=== PATIENT | female | born 1960 | race Caucasian/White ===

== ENCOUNTER 2017-01-07 15:19 | Outpatient (CLI) | payer OTHER | END 2017-01-07 15:20 | disposition home or self-care (01) | DX: G47.30 Sleep apnea, unspecified (principal); G47.8 Other sleep disorders; G47.10 Hypersomnia, unspecified; R06.83 Snoring ==

== ENCOUNTER 2017-02-04 19:21 | Outpatient (CLI) | payer OTHER | END 2017-02-04 19:22 | disposition home or self-care (01) | LOC: SC 19:21 | PROVIDERS: ATTEND Internal Medicine Pulmonary Disease | DX: G47.33 Obstructive sleep apnea (adult) (pediatric) (principal); G47.61 Periodic limb movement disorder | CPT/HCPCS: 95810 ==

== ENCOUNTER 2017-03-14 13:12 | Outpatient (CLI) | payer OTHER | END 2017-03-14 13:13 | disposition home or self-care (01) | LOC: SC 13:12 | PROVIDERS: ATTEND Nurse Practitioner Family | DX: G47.33 Obstructive sleep apnea (adult) (pediatric) (principal); G47.61 Periodic limb movement disorder | CPT/HCPCS: 99212; 99214 ==

== ENCOUNTER 2017-04-05 23:00 | Outpatient (CLI) | payer OTHER | END 2017-04-05 23:01 | disposition home or self-care (01) | LOC: SC 23:00 | PROVIDERS: ATTEND Internal Medicine Pulmonary Disease | DX: G47.33 Obstructive sleep apnea (adult) (pediatric) (principal); G47.61 Periodic limb movement disorder; I47.2 Ventricular tachycardia | CPT/HCPCS: 95811 ==

== ENCOUNTER 2017-05-14 14:05 | Outpatient (CLI) | payer OTHER | END 2017-05-14 14:06 | disposition home or self-care (01) | LOC: SC 14:05 | PROVIDERS: ATTEND Nurse Practitioner Family | DX: G47.33 Obstructive sleep apnea (adult) (pediatric) (principal) | CPT/HCPCS: 99212; 99214 ==

== ENCOUNTER 2017-07-03 15:48 | Outpatient (CLI) | payer OTHER | END 2017-07-03 15:49 | disposition home or self-care (01) | LOC: SC 15:48 | PROVIDERS: ATTEND Nurse Practitioner Family | DX: G47.33 Obstructive sleep apnea (adult) (pediatric) (principal) | CPT/HCPCS: 99212; 99214 ==

== ENCOUNTER 2017-10-03 13:02 | Outpatient (CLI) | payer OTHER | END 2017-10-03 13:03 | disposition home or self-care (01) | LOC: SC 13:02 | PROVIDERS: ATTEND Nurse Practitioner Family | DX: G47.33 Obstructive sleep apnea (adult) (pediatric) (principal) | CPT/HCPCS: 99212; 99214 ==

== ENCOUNTER 2018-03-14 11:08 | Emergency (ER) | payer OTHER ==
[2018-03-14 11:37] LABS: BILIRUBIN,URINE NEGATIVE (NEGATIVE); GLUCOSE, URINE (UA) NEGATIVE (NEGATIVE); KETONES,URINE (UA) NEGATIVE (NEGATIVE); LEUKOCYTE ESTERASE, URINE NEGATIVE (NEGATIVE); NITRITE,URINE NEGATIVE (NEGATIVE); OCCULT BLOOD,URINE NEGATIVE (NEGATIVE); PROTEIN,URINE NEGATIVE (NEGATIVE); UROBILINOGEN,URINE 0.2 (NORMAL) E.U./dL (NORMAL)
[2018-03-14 11:40] LABS: CLARITY,URINE CLEAR (CLEAR)
[2018-03-14] MEDS ORDERED: MAG HYDROX/AL HYDROX/SIMETH 30 ML UDC PO STA (12:00)
[2018-03-14] MEDS ORDERED: LIDOCAINE VISCOUS 2% 15 ML UDC MM STA (12:00)
[2018-03-14] MEDS ORDERED: PHENobarb/HYOSCY/ATROPINE/SCOP 5 ML UDC PO STA (12:01)
--- NOTE | 2018-03-14 12:31 | ED Physician Documentation ---
PD HPI CHEST PAIN - Stated complaint Stated Complaint: CHEST PX - Chief complaint Chief Complaint: Cardiac - History obtained from History obtained from: Patient - History of Present Illness Timing - onset: How many hours ago (4) Timing - onset during: Rest Timing - duration: Hours (4) Timing - details: Waxing and waning Quality: Dull Location: Left chest Similar symptoms before: No diagnosis (Similar, but milder, symptoms in the past.) - Additional information Additional information: The patient is a 57-year-old female with history of GERD, who presents with left anterior chest pain that started about 4 hours prior to arrival when she awoke from sleep. She describes it as a dull pain that has been waxing and waning since onset. She denies associated shortness of breath, diaphoresis, nausea or vomiting. She has had similar but milder symptoms in the past. She thinks it is worse with stress. Cardiac risk factors are negative for diabetes, hypertension, or hyperlipidemia. She stopped smoking cigarettes 17 years ago. Family history is significant for coronary artery disease in her father who had stents placed while in his late 50's. Review of Systems Constitutional: denies: Fever Ears: denies: Tinnitus/ringing Nose: denies: Congestion Throat: denies: Sore throat Cardiac: reports: Chest pain / pressure. denies: Palpitations Respiratory: denies: Dyspnea, Cough GI: denies: Abdominal Pain, Nausea, Vomiting : denies: Dysuria Skin: denies: Rash Musculoskeletal: denies: Back pain Neurologic: denies: Focal weakness, Numbness, Headache PD PAST MEDICAL HISTORY - Past Medical History Past Medical History: Yes Respiratory: Sleep apnea, CPAP use GI: GERD Psych: Depression - Past Surgical History Past Surgical History: Yes General: Cholecystectomy /[facility]: Tubal ligation - Present Medications Home Medications: Ambulatory Orders Medication Instructions Recorded Confirmed Fluoxetine HCl [Prozac] 20 mg PO 03/14/18 Naproxen Sodium [Aleve] 220 mg PO 03/14/18 Omeprazole [PriLOSEC] 10 mg PO QDAC 03/14/18 03/14/18 - Allergies Allergies/Adverse Reactions: Allergies Allergy/AdvReac Type Severity Reaction Status Date / Time latex tape Allergy Hives Uncoded 03/14/18 11:20 - Social History Does the pt smoke?: No Smoking Status: Former smoker (Quit smoking cigarettes 17 years ago.) Does the pt drink ETOH?: Yes Does the pt have substance abuse?: No - Immunizations Immunizations are current?: Yes PD ED PE NORMAL - Vitals Vital signs reviewed: Yes (Borderline systolic hypertension.) - General General: Alert and oriented X 3, Well developed/nourished - HEENT HEENT: Atraumatic, Pharynx benign - Neck Neck: No adenopathy, No JVD - Cardiac Cardiac: RRR, No murmur - Respiratory Respiratory: No respiratory distress, Clear bilaterally - Abdomen Abdomen: Soft, Non tender - Back Back: No CVA TTP - Derm Derm: No rash - Extremities Extremities: No edema, No calf tenderness / cord - Neuro Neuro: Alert and oriented X 3, No motor deficit, Normal speech Results - Vitals Vitals: Oxygen O2 Source Room air - EKG (time done) 11:19 Rate: Rate (enter#) (61) Rhythm: NSR [place]: Normal Intervals: Normal [place] QRS: Normal Ischemia: T wave inversion (in precordial leads V2-V4) Computer interpretation: Agree with computer - Labs Labs: Laboratory Tests 03/14/18 03/14/18 03/14/18 11:19 11:19 11:19 WBC 6.0 RBC 4.34 Hgb 12.9 Hct 37.6 MCV 86.8 MCH 29.7 MCHC 34.3 RDW 13.6 Plt Count 279 MPV 7.9 Neut # (Auto) 3.7 Lymph # (Auto) 1.7 [place] # (Auto) 0.4 Eos # (Auto) 0.1 Baso # (Auto) 0.0 Absolute Nucleated RBC 0.00 Nucleated RBC % 0.0 Sodium 137 Potassium 3.7 Chloride 103 Carbon Dioxide 29 Anion Gap 5.0 L BUN 12 Creatinine 0.6 Estimated GFR (MDRD) 103 Glucose 101 H Calcium 8.7 Troponin I < 0.04 Urine Color Urine Clarity Urine pH Ur Specific [place] Urine Protein Urine Glucose (UA) Urine Ketones Urine Occult Blood Urine Nitrite Urine Bilirubin Urine Urobilinogen Ur Leukocyte Esterase Ur Microscopic Review Urine Culture Comments 03/14/18 11:31 WBC RBC Hgb Hct MCV MCH MCHC RDW Plt Count MPV Neut # (Auto) Lymph # (Auto) [place] # (Auto) Eos # (Auto) Baso # (Auto) Absolute Nucleated RBC Nucleated RBC % Sodium Potassium Chloride Carbon Dioxide Anion Gap BUN Creatinine Estimated GFR (MDRD) Glucose Calcium Troponin I Urine Color YELLOW Urine Clarity CLEAR Urine pH 7.0 Ur Specific [place] 1.015 Urine Protein NEGATIVE Urine Glucose (UA) NEGATIVE Urine Ketones NEGATIVE Urine Occult Blood NEGATIVE Urine Nitrite NEGATIVE Urine Bilirubin NEGATIVE Urine Urobilinogen 0.2 (NORMAL) Ur Leukocyte Esterase NEGATIVE Ur Microscopic Review NOT INDICATED Urine Culture Comments NOT INDICATED - Rads (name of study) CXR Radiology: Prelim report reviewed, EMP read contemporaneously, See rad report (Normal 2 view chest radiography.) PD MEDICAL DECISION MAKING - ED course Complexity details: reviewed results, re-evaluated patient, considered differential, d/w patient, d/w family ED course: The underlying etiology for the patient's chest discomfort is not certain at this time, but is most likely due to gastroesophageal reflux disease. Cardiac etiology was considered, but is less likely. Her EKG reveals no acute abnormality, and troponin is normal. The respiratory lab results are also normal. Chest x-ray reveals no evidence of pulmonary etiology. Treatment in the emergency department included administration of GI cocktail, which slightly reduced the patient's symptoms. 4 baby aspirin and a sublingual nitroglycerin were administered. There was no change in her symptoms with this treatment, but it did produce a headache. Acetaminophen 650 mg is administered orally. Over the ensuing course of observation, her symptoms gradually did resolve. I discussed with her and her the results of her workup, symptomatic treatment and outpatient follow-up, as well as potentially worrisome signs or symptoms that should prompt reevaluation in the emergency department. - Sepsis Event Vital Signs: Oxygen O2 Source Room air Departure - Departure Disposition: 01 Home, Self Care Clinical Impression: Atypical chest pain Condition: Stable Instructions: ED Chest Pain Atypical Unkn Cause Follow-Up: Coral Early MD [Primary Care Provider] - Comments: Minimize coffee, alex, alcohol. Continue taking Prilosec daily as previously prescribed. You can use liquid antacid, such as Maalox or Mylanta, if you develop recurrent symptoms. You can use acetaminophen, up to 4 times daily for musculoskeletal pain. Follow up with your primary physician within 1-2 weeks. Call to schedule appointment. Return to the emergency department if you develop increasing chest pain, shortness of breath, or otherwise worsening symptoms. Discharge Date/Time: 03/14/18 14:00
[2018-03-14] MEDS ORDERED: ASPIRIN CHEW 81 MG TABLET PO STA (12:32)
[2018-03-14] MEDS ORDERED: NITROGLYCERIN SL 0.4 MG TABLET SL STA (12:32)
[2018-03-14 12:38] LABS: BASOPHILS % (AUTO) 0.6 %; EOSINOPHILS # (AUTO) 0.1 10^3/uL (0.0-0.7); EOSINOPHILS % (AUTO) 2.1 %; HGB - HEMOGLOBIN 12.9 g/dL (12.0-16.0); LYMPHOCYTES # (AUTO) 1.7 10^3/uL (1.5-3.5); LYMPHOCYTES % (AUTO) 28.5 %; MEAN CORPUSCULAR HEMOGLOBIN 29.7 pg (27.0-31.0); MEAN CORPUSCULAR HGB CONC 34.3 g/dL (32.0-36.0); MEAN CORPUSCULAR VOLUME 86.8 fL (81.0-99.0); MEAN PLATELET VOLUME 7.9 fL (7.9-10.8); MONOCYTES # (AUTO) 0.4 10^3/uL (0.0-1.0); MONOCYTES % (AUTO) 7.1 %; NEUTROPHILS # (AUTO) 3.7 10^3/uL (1.5-6.6); NEUTROPHILS % (AUTO) 61.7 %; PLT - PLATELET COUNT 279 10^3/uL (130-450); RED BLOOD COUNT 4.34 10^6/uL (4.20-5.40); RED CELL DISTRIBUTION WIDTH 13.6 % (12.0-15.0)
[2018-03-14 12:43] VITALS: BP 128/69
[2018-03-14] MEDS ORDERED: ACETAMINOPHEN 325 MG TABLET PO STA (12:44)
[2018-03-14 12:46] LABS: CALCIUM 8.7 mg/dL (8.5-10.3); CREATININE 0.6 mg/dL (0.4-1.0)
--- NOTE | 2018-03-14 13:03 | XRAY Report ---
Reason: left sided chest pain Procedure Date: 03/14/2018 Accession Number: [id number] / [id number] Procedure: XR - Chest 2 View X-Ray CPT Code: 62445 FULL RESULT: EXAM: CHEST RADIOGRAPHY EXAM DATE: 03/14/2018 12:52 PM. CLINICAL HISTORY: Left-sided chest pain since this morning. COMPARISON: None. TECHNIQUE: 2 views. FINDINGS: Lungs/Pleura: No focal opacities evident. No pleural effusion. No pneumothorax. Normal volumes. Mediastinum: Heart and mediastinal contours are unremarkable. Other: None. IMPRESSION: Normal 2-view chest radiography. [facility]
== END 2018-03-14 14:00 | disposition home or self-care (01) ==
LOC: ED 11:08
DX: R07.89 Other chest pain (principal); R94.31 Abnormal electrocardiogram [ECG] [EKG]; Z87.891 Personal history of nicotine dependence
CPT/HCPCS: 36415; 71046; 80048; 81003; 84484; 85025; 93005; 99283; 99284; A9270; 81001; 87086

== ENCOUNTER 2019-01-08 08:17 | Outpatient (CLI) | payer OTHER | END 2019-01-08 08:18 | disposition home or self-care (01) | LOC: SC 08:17 | PROVIDERS: ATTEND Nurse Practitioner Family | DX: G47.33 Obstructive sleep apnea (adult) (pediatric) (principal) | CPT/HCPCS: 99212; 99215 ==

== ENCOUNTER 2020-03-31 07:49 | Outpatient (CLI) | payer OTHER ==
--- NOTE | 2020-03-31 08:22 | SLEEP CARE CONSULTATION ---
Information from patient questionnaire entered by Barbara Monzon. I have reviewed and concur with the information entered by Barbara Monzon. This document represents the service I personally performed and the decisions made by , Bharati Tracy ARNP. History of Present Illness Service Date and Time: 03/31/2020 0749 Previous diagnosis: Moderate, Obstructive Sleep Apnea-Hypopnea Syndrome AHI: 24.2 (in 2017) Reason for follow up: one month (with pressure change) Equipment type: CPAP Equipment obtained from: [employer] (getting supplies as needed) Mask style: Nasal Backup mask available: Yes (old mask) Last cushion change: 5 days ago Prior sleep studies: Yes Year and Where: [facility] HPI additional information: REX BURKETT was diagnosed to have moderate, AHI 24.2, obstructive sleep apnea-hypopnea syndrome and returned today for CPAP therapy one month pressure change follow-up. Sleep Study - Results Prior sleep studies: Yes Year and Where: [facility] Compliance Data - Data Reviewed with Patient Average duration of nightly device use: 7.4 Compliance rate %: 86.7 Current pressure setting (cmH2O): 4-7 Humidity settin Heated hose settin Average residual AHI: 3.0 Average large leak: 32 sec Subjective Missed days of use due to: reports: illness (nose congestion due to smoke in air) Patient concerns: reports: condensation in mask/hose (will start adjusting heated hose), nasal congestion (condesation in mask helps; uses saline before bed), dry mouth, nose, throat (dry nose, humidity helps). denies: aerophagia, mask discomfort, air blowing in eyes, mask leak noise, epistaxis Observed to snore while using device: No Current pressure setting perceived as: comfortable On therapy, patient: reports: sleeping better, awakening more refreshed, being more awake and alert during the day, more rested overall. denies: drowsiness while driving Initial [place] Sleepiness Scale score: 13 (in 2017) Current [place] Sleepiness Scale score: 3 Allergies and Home Medications Drug allergies reviewed: Yes (latex) Home medication list reviewed: Yes (Tylenol extra strength for her knee pain) Review of Systems Review of systems same as previous: No (left knee pain, she has a f/u with PCP) Physical Exam Heart Rate: 68 O2 Saturation: 98 Height: 5 ft 5 in Weight: 221 lb Body Mass Index: 36.8 BMI Classification: Obese Impression and Plan 1. Obstructive Sleep Apnea-Hypopnea Syndrome, moderate, with good treatment compliance and good apnea control. On CPAP therapy, the patient has better sleep quality and is more rested overall. She is very happy with the new pressure range. She has increased her use from 71.1% to 86.7% because the pressure is more comfortable. She has still had some issues with nasal congestion. Nasal congestion can be reduced with increasing the CPAP humidity as shown on sample device. The heated hose can be adjusted higher if condensation with higher humidity setting. Patient has been adjusting this as needed. She states sometimes the condensation in the mask actually feels good for her dry nose. She uses a saline nasal spray rinse before bed and in the morning but states that she will awaken in the night with her nose congested. I advised her to use the saline rinse again at that time as needed. Nasal dryness can be reduced with increasing the CPAP humidity and she was also advised to apply a small amount of Vaseline nightly in her nares to help reduce dryness. She voiced understanding. Patient's apnea severity and rationale for treatment to reduce apnea, improve sleep quality and reduce cardiovascular and cerebrovascular events was reviewed. I also reviewed the benefit of consistent device use of CPAP for her gastric reflux. * Continue auto CPAP pressure at 4-7 cmH2O * Notify me if snoring with mask or feeling that the pressure is too much or too little * Attempt to lose weight * Call this office if any problems using CPAP * Return for follow up in 1 year, or sooner if concerns arise Visit Type: In Office Time Spent with Patient (minutes): 15 Provider Statement: I spent 100% of the Face to Face Visit with the patient with greater than 50% spent counseling the patient and coordination of care.
== END 2020-03-31 07:50 | disposition home or self-care (01) ==
LOC: SC 07:49
PROVIDERS: ATTEND Nurse Practitioner Family
DX: G47.33 Obstructive sleep apnea (adult) (pediatric) (principal); E66.9 Obesity, unspecified; Z68.36 Body mass index [BMI] 36.0-36.9, adult
CPT/HCPCS: 99212

== ENCOUNTER 2021-03-31 11:35 | Outpatient (CLI) | payer OTHER ==
--- NOTE | 2021-03-31 12:08 | SLEEP CARE CONSULTATION ---
Information from patient questionnaire entered by Gerda Rutledge. I have reviewed and concur with the information entered by Gerda Rutledge. This document represents the service I personally performed and the decisions made by , Bharati Tracy ARNP. History of Present Illness Service Date and Time: 03/31/2021 1135 Previous diagnosis: Moderate, Obstructive Sleep Apnea-Hypopnea Syndrome AHI: 24.2 (in 2017) Reason for follow up: annual Equipment type: CPAP Equipment obtained from: [employer] (getting supplies as needed) Mask style: Nasal Mask brand: Respironics ([place]) Backup mask available: Yes (old mask) Last cushion change: last Saturday Prior sleep studies: Yes Year and Where: 2016 - [facility] Type of Sleep Study: Polysomnography HPI additional information: REX BURKETT was diagnosed to have moderate, AHI 24.2, obstructive sleep apnea-hypopnea syndrome and returned today for CPAP therapy annual follow-up. Sleep Study - Results Prior sleep studies: Yes Year and Where: 2016 - [facility] CPAP Compliance Data - Data Reviewed with Patient Average duration of nightly device use: 6 hours 18 minutes Compliance rate %: 75 Current pressure setting (cmH2O): 4-7 Humidity settin Heated hose settin Average residual AHI: 2.8 Average large leak: 39 seconds Subjective Missed days of use due to: reports: other (fall asleep without mask or take it off at night) Patient concerns: reports: aerophagia (not every night but often; notice it but not uncomfortable), nasal congestion (more since coming back from [place], hard to wear mask occasionally due to allergies). denies: mask discomfort, air blowing in eyes, mask leak noise, condensation in mask/hose, dry mouth, nose, throat, epistaxis, other Observed to snore while using device: No Current pressure setting perceived as: comfortable On therapy, patient: reports: sleeping better, awakening more refreshed, being more awake and alert during the day, more rested overall. denies: drowsiness while driving Initial [place] Sleepiness Scale score: 13 (in 2017) Current [place] Sleepiness Scale score: 4 Allergies and Home Medications Home medication list reviewed: Yes (not on prozac; taking Ashwaganda 800 mg 6 times a week) Physical Exam Blood Pressure: 127/74 Cuff size: wrist Heart Rate: 71 O2 Saturation: 97 Height: 5 ft 5 in Weight: 225 lb Body Mass Index: 37.4 BMI Classification: Obese Impression and Plan 1. Obstructive Sleep Apnea-Hypopnea Syndrome, moderate, with fair treatment compliance and good apnea control. On CPAP therapy, the patient has better sleep quality and is more rested overall. Patient is very satisfied with current treatment. She spends half her time here and half her time in [place]. She is about to go back to [place]. Patient has already been informed of the [employer] recall on her [employer]. Patient has not yet registered her device. Patient was encouraged to register their device online with [employer] for the recall to see if their device is affected. If their device is affected they should start a claim. She states she has cleaned some black- colored stuff a couple of times where the hose connects to her water chamber but she thought it was mold. She has not seen other particles or had any physical side effects. Patient informed that they may use an inline CPAP filter that they can obtain online to reduce chance of any particles being inhaled or ingested. We discussed thoroughly the health risks of not using the CPAP versus continuing use with the filter in place. If patient is not able to sleep due to waking up choking, gasping for air or other respiratory distress that they may decide to continue using it until it is either replaced or repaired. She has been staying steady at her current weight. Patient was encouraged to lose weight for their overall health and to reduce apneas. Patient voiced understanding and agreement with plan. Patient's apnea severity and rationale for treatment to reduce apnea, improve sleep quality and reduce cardiovascular and cerebrovascular events was reviewed. I also reviewed the benefit of consistent device use of CPAP for gastric reflux. * Continue auto CPAP pressure at 4-7 cmH2O * Patient to register her device with [employer] for the recall * Notify me if snoring with mask or feeling that the pressure is too much or too little * Attempt to lose weight * Call this office if any problems using CPAP * Return for follow up in 1 year, or sooner if concerns arise Counseling Topics: Spare mask, Weight loss health impact Visit Type: In Office Time Spent with Patient (minutes): 22 Provider Statement: I spent 100% of the Face to Face Visit with the patient with greater than 50% spent counseling the patient and coordination of care.
[2021-03-31 12:09] VITALS: BP 127/74
== END 2021-03-31 11:36 | disposition home or self-care (01) ==
LOC: SC 11:35
PROVIDERS: ATTEND Nurse Practitioner Family
DX: G47.33 Obstructive sleep apnea (adult) (pediatric) (principal); E66.9 Obesity, unspecified; Z68.37 Body mass index [BMI] 37.0-37.9, adult
CPT/HCPCS: 99212; 99213